=== PATIENT | female | born 1990 | race Hispanic/Latino ===

== ENCOUNTER → 2022-08-28 | Day surgery (SDC) | payer SELFPAY ==
[~2022-08-28] MED LIST: MICROGESTIN1 EACH PO; OR PHACO EYE KIT ONE; PREOP PHACO EYE KIT ONE
[2022-08-28 14:12] VITALS: BP 120/82
== END | disposition home or self-care (01) ==
LOC: OR 10:51
PROVIDERS: ATTEND Ophthalmology
DX: H25.12 Age-related nuclear cataract, left eye (principal); F17.210 Nicotine dependence, cigarettes, uncomplicated
CPT/HCPCS: 81025

== ENCOUNTER → 2022-09-11 | Day surgery (SDC) | payer SELFPAY ==
[2022-09-11 11:25] VITALS: BP 115/69
== END | disposition home or self-care (01) ==
LOC: OR 08:32
PROVIDERS: ATTEND Ophthalmology
DX: H25.11 Age-related nuclear cataract, right eye (principal)
CPT/HCPCS: 66984; 81025; V2788